=== PATIENT | female | born 1995 | race African-American/Black ===

== ENCOUNTER 2017-05-11 15:20 | Emergency (ER) | payer OTHER ==
[~2017-05-11] VITALS: Ht 154.9 cm; Wt 47.0 kg
[2017-05-11 15:29] VITALS: BP 130/71; PULSE 69; RESP 16; TEMP 99.1; O2SAT 100
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
[2017-05-11] MEDS ORDERED: ROBA500T PO (16:50)
[2017-05-11] MEDS ORDERED: IBUP800T23 PO (16:50)
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
[2017-05-11] MEDS ORDERED: IBUPROFEN 800 MG TAB PO ONE (17:00)
[2017-05-11] MEDS ORDERED: METHOCARBAMOL 500 MG TAB PO ONE (17:00)
== END 2017-05-11 17:05 | disposition home or self-care (01) ==
LOC: NEPK 15:20
DX: S16.1XXA Strain of muscle, fascia and tendon at neck level, initial encounter (principal); V49.49XA Driver injured in collision with other motor vehicles in traffic accident, initial encounter; Y92.410 Unspecified street and highway as the place of occurrence of the external cause
CPT/HCPCS: 99283